=== PATIENT | male | born 1995 | race Two or more races ===

== ENCOUNTER 2020-04-04 15:56 | Emergency (ER) | payer SELFPAY ==
[~2020-04-04] VITALS: Ht 172.7 cm; Wt 100.0 kg
[2020-04-04 16:02] VITALS: BP 134/80
--- NOTE | 2020-04-04 17:03 | RAD ---
Left foot 3 views 04/04/2020. Reason for exam: Pain after injury. No fracture or dislocation is seen. There is no apparent foreign body or unusual joint narrowing. IMPRESSION: No acute abnormality. Left ankle 3 views: No fracture or dislocation is seen. There may be a small effusion in the tibiotalar joint. There is no apparent foreign body. IMPRESSION: No apparent acute bony abnormality. Electronically signed by: Chip Moore Jr., MD (04/04/2020 5:00 PM) [id number]
--- NOTE | 2020-04-04 17:27 | PHYS DOC ---
General Adult EDM: Chief Complaint: ANKLE PROBLEM HPI: HPI: Patient is a 25 year old male who presents to the emergency department with complaints of lateral low back pain that radiates down his entire leg and increases with lifting his left leg for the last 2 days. Patient states that this discomfort started after he fell while rollerskating 2 days ago. Patient states yesterday while he was walking his leg gave out and he rolled his left ankle laterally at approximately 1700. Patient reports swelling and increased pain with weightbearing since the injury yesterday. He currently rates his pain a 5 out of 10 on the pain scale, patient denies taking any medications prior to arrival for relief of his discomfort. Review of Systems: Review of Systems: Constitutional: Denies fever or chills. [] Eyes: Denies change in visual acuity. [] HENT: Denies nasal congestion or sore throat. [] Respiratory: Denies cough or shortness of breath. [] Cardiovascular: Denies chest pain or edema. [] GI: Denies abdominal pain, nausea, vomiting, or diarrhea. [] : Denies dysuria, hematuria. [] Musculoskeletal: See HPI Integument: Denies rash. [] Neurologic: Denies headache Psychiatric: Denies depression or anxiety. [] Heart Score: Risk Factors: Risk Factors: DM, Current or recent (<one month) smoker, HTN, HLP, family history of CAD, obesity. Risk Scores: Score 0 - 3: 2.5% MACE over next 6 weeks - Discharge Home Score 4 - 6: 20.3% MACE over next 6 weeks - Admit for Clinical Observation Score 7 - 10: 72.7% MACE over next 6 weeks - Early Invasive Strategies Physical Exam: PE: Constitutional: Well developed, well nourished, no acute distress, non-toxic appearance. [] HENT: Normocephalic, atraumatic, bilateral external ears normal, nose normal. [] Eyes: PERRLA, EOMI, conjunctiva normal, no discharge. [] Neck: Normal range of motion, no stridor. [] Cardiovascular:Heart rate regular rhythm Lungs & Thorax: Respirations even and unlabored, no retractions, no respiratory distress Abdomen: soft, no tenderness Back: Left lumbar paraspinal tenderness to palpation, no bony tenderness, increased pain with left straight leg lift Skin: Warm, dry, no erythema, no rash. [] Extremities: Left ankle: Lateral tenderness to palpation with 1+ edema, no obvious deformity, no cyanosis, ROM intact Neurologic: Alert and oriented X 3, no focal deficits noted. [] Psychologic: Affect normal, judgement normal, mood normal. [] EKG: EKG: [] Radiology/Procedures: Radiology/Procedures: PROCEDURE: ANKLE LEFT 3V Left foot 3 views 04/04/2020. Reason for exam: Pain after injury. No fracture or dislocation is seen. There is no apparent foreign body or unusual joint narrowing. IMPRESSION: No acute abnormality. Left ankle 3 views: No fracture or dislocation is seen. There may be a small effusion in the tibiotalar joint. There is no apparent foreign body. IMPRESSION: No apparent acute bony abnormality. PROCEDURE: FOOT LEFT 3V Left foot 3 views 04/04/2020. Reason for exam: Pain after injury. No fracture or dislocation is seen. There is no apparent foreign body or unusual joint narrowing. IMPRESSION: No acute abnormality. Left ankle 3 views: No fracture or dislocation is seen. There may be a small effusion in the tibiotalar joint. There is no apparent foreign body. IMPRESSION: No apparent acute bony abnormality. [] Course & Med Decision Making: Course & Med Decision Making Pertinent Labs and Imaging studies reviewed. (See chart for details) [] Dahlia Disclaimer: Dahlia Disclaimer: This electronic medical record was generated, in whole or in part, using a voice recognition dictation system. Departure Departure Impression: Primary Impression: Pain in left paraspinal region Additional Impressions: Left ankle pain Qualified Codes: M25.572 - Pain in left ankle and joints of left foot Sciatica of left side Disposition: 01 HOME, SELF-CARE Condition: STABLE Referrals: NO PCP (PCP) Patient Instructions: Ankle Pain, Back Pain, Adult, [id number], Sciatica, [id number] Additional Instructions: Fill prescription(s) and use as directed. Recommend application of ice, elevation, and rest of affected extremity. Activity as tolerated, wear the splint that was placed until follow up appointment. Follow up with your doctor or doctor Sherman this week for reevaluation. Return to the ER if your symptoms worsen. Scripts Naproxen (NAPROXEN) 500 Mg Tablet 1 TAB PO BID PRN for PAIN for 10 Days, #20 TAB 0 Refills Prov: DANUTA KRAFT APRN 04/04/20 Cyclobenzaprine Hcl (CYCLOBENZAPRINE HCL) 10 Mg Tablet 1 TAB PO TID PRN for PAIN, #30 TAB 0 Refills Prov: DANUTA KRAFT APRN 04/04/20 Justicifation of Admission Dx: Justifications for Admission: Justification of Admission Dx: N/A Splinting Splinting : Location: Left ankle Pre-Made Type: velcro (Ankle air splint) Pre-Proc Neuro Vasc Exam: normal Post-Proc Neuro Vasc Exam: normal, unchanged from pre-exam Progress He bandage and ankle air splint applied to the left ankle, patient neurovascularly intact following this procedure. DANUTA KRAFT APRN Apr 04, 2020 17:27
--- NOTE | 2020-04-04 17:34 | RAD ---
LUMBAR SPINE 2-3V DATE: 04/04/2020 5:11 PM INDICATION: Reason: left low back pain after fall 2 days ago / Spl. Instructions: / History: COMPARISON: None. FINDINGS: Five non-rib bearing lumbar-type vertebral bodies are present. Bones/Alignment: No evidence of acute compression fracture. There is no listhesis. Joints: There is no disc space loss. Miscellaneous: None. IMPRESSION: No evidence of acute compression fracture. Electronically signed by: Sedrick Singh MD (04/04/2020 5:31 PM) [id number]
[2020-04-04] MEDS ORDERED: CYCL10TA2 PO (18:04)
[2020-04-04] MEDS ORDERED: NAPR-514 PO (18:04)
== END 2020-04-04 18:44 | disposition home or self-care (01) ==
LOC: ER 15:56
DX: M54.42 Lumbago with sciatica, left side (principal); M25.572 Pain in left ankle and joints of left foot; R60.0 Localized edema
CPT/HCPCS: 72100; 73610; 73630; 99284; L4350